=== PATIENT | male | born 1995 | race Caucasian/White ===

== ENCOUNTER 2020-04-10 12:08 | Emergency (ER) | payer OTHER, SELFPAY ==
[2020-04-10 12:17] VITALS: BP 139/78; PULSE 108; RESP 14; TEMP 36.9; O2SAT 98
--- NOTE | 2020-04-10 12:22 | ED.EYEPROB ---
HPI - Eye Problem General Chief complaint: Eye Problems Stated complaint: object in left eye Time Seen by Provider: 04/10/20 12:22 Source: patient and RN notes reviewed History of Present Illness HPI Narrative: Patient is a 25-year-old male who presents the urgent care with complaints of a possible foreign body in the left eye. 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 Patient denies of any vision change, however he does have a very poor vision without use of contacts or glasses. Patient states that he was not currently welding or soldering at the time of the incident and the only foreign body that would have injured the eye would be the liquid flux. Patient states he did take the contact out and has flush the eye. Patient was not wearing safety glasses at the time. No other acute complaints. No acute distress noted. Patient read the plan of care. Related Data Home Medications Medication Instructions Recorded Confirmed No Home Medications 04/10/20 04/10/20 Allergies Allergy/AdvReac Type Severity Reaction Status Date / Time No Known Allergies Allergy Verified 04/10/20 12:28 Review of Systems Review of Systems: Narrative: CONSTITUTIONAL: Denies fever, chills, or sweats. EYES: Reports of left eye itchiness ENT: Denies rhinorrhea, congestion, sore throat, or otalgia. CARDIOVASCULAR: Denies chest pain, palpitations, or edema. RESPIRATORY: Denies cough or dyspnea. GASTROINTESTINAL: Denies abdominal pain, nausea, vomiting, or diarrhea. GENITOURINARY: Denies dysuria or hematuria. SKIN: Denies rash or itching. MUSCULOSKELETAL: Denies back pain, joint pain, or myalgia. NEUROLOGIC: Denies headache, numbness, or weakness. All other systems reviewed are negative, except as documented in HPI. PMFSH Comments At the time of my signature, I reviewed and agree with the nursing past medical, surgical, social, and family history. There is no relevant family history pertinent to the patient complaint. Exam Narrative: Exam Narrative: GENERAL: This is a well-nourished, well-developed patient, in no apparent distress. HEAD: normocephalic, atraumatic. EYES: PERRL. Sclera clear/white. Vision is grossly intact. Mild surrounding irritation to the left eye without any notable trauma or injury. No injection bilaterally. EARS: External ears normal NOSE: External nose normal with no obvious nasal discharge, nares without redness, no rhinorrhea. THROAT: Mucous membranes moist NECK: Neck supple SKIN: warm, intact with no suspicious lesions or rash, good texture and turgor. NEURO: awake, alert, and oriented to person, place and time. There were no obvious focal neurologic abnormalities. EXTREMITIES: No clubbing, cyanosis, or edema. Course Vital Signs Vital signs: Vital Signs Temperature 98.5 F 04/10/20 12:17 Pulse Rate 108 H 04/10/20 12:17 Respiratory Rate 14 04/10/20 12:17 Blood Pressure 139/78 04/10/20 12:17 Pulse Oximetry 98 04/10/20 12:17 Temperature 98.5 F 04/10/20 12:17 Pulse Rate 108 H 04/10/20 12:17 Respiratory Rate 14 04/10/20 12:17 Blood Pressure 139/78 04/10/20 12:17 Pulse Oximetry 98 04/10/20 12:17 Reviewed MDM - Eye Problem MDM Narrative Medical decision making narrative: Advised the patient to use the eyewash to the left eye twice a day for the next 3 days. If you develop any increase in irritation associated with redness, blurry vision, changes in vision, swelling of the eye?go immediately to the emergency room or can filling and closing machine tender. Advised the patient to call poison control when he has the liquid flux in-hand to ask for further direction if necessary. Considering the solution was immediately washed from the eye and the contact was removed, no necessary need for transfer at this time. Advised the patient to get rid of the contacts that were in the eye at the time of the incident. Do not wear c
== END 2020-04-10 12:42 | disposition home or self-care (01) ==
PROVIDERS: Emergency Provider Nurse Practitioner Family
DX: H57.89 Other specified disorders of eye and adnexa (principal)
CPT/HCPCS: 99203; A9270; G0463